=== PATIENT | female | born 1960 | race Caucasian/White ===

== ENCOUNTER 2025-02-03 20:57 | Emergency (ER) | payer OTHER ==
[2025-02-03] MEDS ORDERED: Sodium Chloride 0.9% 10 ML Syringe FLUSH PRN (21:33)
[2025-02-03] MEDS: Ondansetron 4 MG/2 ML SDV IVPUSH ONE (21:43)
[2025-02-03] MEDS: Ketamine 500 mg/10 ML MDV IV ONE (21:54)
[2025-02-03] MEDS: Take Home: Acetaminophen/oxyCODONE 325-5 MG, 5 Tab Pack PO ONE (22:37)
[2025-02-03] MEDS: Take Home: traMADol 50 MG, 4 Tab Pack PO ONE (22:45)
== END 2025-02-03 22:52 | disposition home or self-care (01) ==
LOC: DL.ED 20:57
DX: S52.571A Other intraarticular fracture of lower end of right radius, initial encounter for closed fracture (principal); Z90.710 Acquired absence of both cervix and uterus; Z88.1 Allergy status to other antibiotic agents; W18.40XA Slipping, tripping and stumbling without falling, unspecified, initial encounter; Y92.002 Bathroom of unspecified non-institutional (private) residence as the place of occurrence of the external cause
CPT/HCPCS: 25605; 73100; 73110; 96374; 99283; A9270; J2405; J3490; 99152